=== PATIENT | male | born 1990 | race Caucasian/White ===

== ENCOUNTER 2018-12-03 07:10 | Emergency (ER) | payer MEDICAID ==
[~2018-12-03] VITALS: Ht 170.2 cm; Wt 91.6 kg
[2018-12-03 07:26] VITALS: BP 133/85
[2018-12-03] MEDS ORDERED: KETOROLAC 60 MG/2 ML VIAL IM ONE (07:40)
[2018-12-03 08:49] VITALS: BP 123/70
== END 2018-12-03 08:49 | disposition home or self-care (01) ==
LOC: MED 07:10
DX: L03.115 Cellulitis of right lower limb (principal)
CPT/HCPCS: 96372; 99283; J1885